=== PATIENT | male | born 1975 | race Caucasian/White ===

== ENCOUNTER 2018-06-30 01:56 | Observation (INO) | payer OTHER ==
[2018-06-30] MEDS ORDERED: ZOFRAN ONE (02:21)
[2018-06-30] MEDS ORDERED: ZOFRAN IV ONE (02:39)
[2018-06-30] MEDS ORDERED: ANTIVERT PO ONE (02:45)
[2018-06-30] MEDS ORDERED: CATAPRES PO ONE (02:45)
[2018-06-30] MEDS ORDERED: REGLAN IV PRN (02:46)
[2018-06-30 03:07] LABS: Basophils # (Auto) 0.1 K/mm3 (0.0-0.1); Basophils % (Auto) 0.7 % (0.0-1.8); Hematocrit 41.1 % (35.5-45.6); Hemoglobin 13.7 gm/dl (11.8-15.2); Lymphocytes # (Auto) 1.4 K/mm3 (1.2-5.4); Lymphocytes % (Auto) 10.7 % (13.4-35.0); Mean Corpuscular HGB Conc 34 % (32-34); Mean Corpuscular Hemoglobin 26 pg (28-32); Mean Corpuscular Volume 79 fl (84-94); Monocytes # (Auto) 0.8 K/mm3 (0.0-0.8); Monocytes % (Auto) 5.8 % (0.0-7.3); Platelet Count 195 K/mm3 (140-440); Red Blood Count 5.23 M/mm3 (3.65-5.03); Red Cell Distribution Width 16.6 % (13.2-15.2)
--- NOTE | 2018-06-30 03:09 | Emergency Department Report ---
HPI - General Chief Complaint: Nausea/Vomiting/Diarrhea Time Seen by Provider: 06/30/18 02:36 - HPI HPI: Room 19 The patient is a 43-year-old male presenting with chief complaint of vertigo. The patient states his symptoms began night before last approximately 23:00 when he became dizzy feeling as though the room was spinning. The patient states he closed his eyes and the symptoms resolved however they returned approximately one hour later. The patient began having nausea and vomiting yesterday evening the vomiting stopped (although the vertigo persisted). This evening the patient took a shower and the nausea vomiting returned prompting him to come to the ED. Patient waited a slight frontal headache but denies any preceding trauma. Patient denies any other forms of pain. Patient denies any preceding URI symptoms Location: [See above] Duration: [See above] Quality: Vertigo Severity: Moderate Modifying factors: [see above] Context: [see above] Mode of transportation: [not driving] ED Past Medical Hx - Past Medical History Hx Hypertension: Yes - Surgical History Past Surgical History?: No - Family History Family history: no significant - Social History Smoking Status: Never Smoker Substance Use Type: None (denies illicit drug use), Alcohol (occasional) - Medications Home Medications: Home Medications Medication Instructions Recorded Confirmed Last Taken Type amLODIPine 5 mg PO DAILY 06/30/18 06/30/18 Unknown History ED Review of Systems ROS: Stated complaint: ELEVATED BP Other details as noted in HPI Constitutional: denies: fever Eyes: denies: eye pain ENT: denies: congestion Respiratory: no symptoms reported. denies: cough Cardiovascular: denies: chest pain Endocrine: no symptoms reported Gastrointestinal: nausea, vomiting Genitourinary: denies: dysuria Musculoskeletal: denies: back pain Neurological: headache, vertigo Physical Exam - Physical Exam Vital Signs: Vital Signs 06/30/18 06/30/18 02:17 02:32 Temperature 98.3 F Pulse Rate 83 Respiratory 16 16 Rate Blood Pressure 161/107 O2 Sat by Pulse 100 100 Oximetry Physical Exam: GENERAL: The patient is well-developed well-nourished male lying on stretcher not appearing to be in acute distress. [] HEENT: Normocephalic. Atraumatic. Extraocular motions are intact. Patient has moist mucous membranes. No nystagmus noted NECK: Supple. No meningitic signs are noted. There is no adenopathy noted. CHEST/LUNGS: Clear to auscultation. There is no respiratory distress noted. HEART/CARDIOVASCULAR: Regular. There is no tachycardia. There is no gallop rub or murmur. ABDOMEN: Abdomen is soft, nontender. Patient has normal bowel sounds. There is no abdominal distention. SKIN: There is no rash. There is no edema. There is no diaphoresis. NEURO: The patient is awake, alert, and oriented. The patient is cooperative. The patient has no focal neurologic deficits. The patient has normal speech. Cranial nerves II through XII grossly intact, no drift. No dysmetria noted with [id number] bilaterally MUSCULOSKELETAL: There is no evidence of acute injury. ED Course Vital Signs 06/30/18 06/30/18 02:17 02:32 Temperature 98.3 F Pulse Rate 83 Respiratory 16 16 Rate Blood Pressure 161/107 O2 Sat by Pulse 100 100 Oximetry - Reevaluation(s) Reevaluation #1: 06/30/18 05:05 Patient states his symptoms remain unchanged despite meclizine and Ativan. Patient continues to feel nauseous. Will admit the patient to the hospital for further evaluation ED Medical Decision Making - Lab Data Result diagrams: 06/30/18 02:55 06/30/18 02:55 Laboratory Tests 06/30/18 06/30/18 02:55 02:55 WBC 13.4 H RBC 5.23 H Hgb 13.7 Hct 41.1 MCV 79 L MCH 26 L MCHC 34 RDW 16.6 H Plt Count 195 Lymph % (Auto) 10.7 L [place] % (Auto) 5.8 Eos % (Auto) 0.0 Baso % (Auto) 0.7 Lymph # 1.4 [place] # 0.8 Eos # 0.0 Baso # 0.1 Seg Neutrophils % 82.8 H Seg Neutrophils # 11.1 H Sodium 139 Potassium 4.2 Chloride 98.3 Carbon Dioxide 28 Anion Gap 17 BUN 17 Creatinine 1.2 Estimated GFR > 60 BUN/Creatinine Ratio 14 Glucose 110 H Calcium 10.0 - Radiology Data Radiology results: report reviewed (CT head), image reviewed (CT head) - Differential Diagnosis vertigo, ICH, cerebellar mass Critical care attestation.: If time is entered above; I have spent that time in minutes in the direct care of this critically ill patient, excluding procedure time. ED Disposition Clinical Impression: Vertigo Disposition: DC-09 OP ADMIT IP TO THIS HOSP Is pt being admited?: Yes Does the pt Need Aspirin: Yes Condition: Fair Referrals: PRIMARY CARE, [Primary Care Provider] - 3-5 Days Time of Disposition: 05:06 (hospitalist paged (Dr. Kelley Ochoa))
[2018-06-30 03:26] LABS: BUN/Creatinine Ratio 14; Blood Urea Nitrogen 17 mg/dL (9-20); Hemolysis Index 3
--- NOTE | 2018-06-30 03:44 | Cat Scan Report ---
FINAL REPORT EXAM: CT HEAD/BRAIN WO CON HISTORY: hypertension, vertigo TECHNIQUE: Routine axial imaging was obtained of the brain without IV contrast. FINDINGS: The ventricular system is appropriate in size and is symmetric. There is no evidence of acute stroke or hemorrhage. The mastoid air cells are well pneumatized. The visualized sinuses are clear. IMPRESSION: No acute intracranial process.
[2018-06-30] MEDS ORDERED: ATIVAN PO ONE (04:13)
[2018-06-30] MEDS ORDERED: ASPIRIN PO ONE (05:06)
[2018-06-30] MEDS ORDERED: TYLENOL PO PRN (06:13)
[2018-06-30] MEDS ORDERED: SODIUM CHLORIDE FLUSH SYRINGE 10 ML IV PRN (06:13)
[2018-06-30] MEDS ORDERED: ZOFRAN IV PRN (06:13)
--- NOTE | 2018-06-30 06:13 | History and Physical Report ---
History of Present Illness Date of examination: 06/30/18 History of present illness: 43-year-old man with history of hypertension comes emergency room with complaints of feeling dizzy since yesterday, associated with nausea, difficult to ambulate. No focal weakness on neurological symptoms Review of systems Constitutional: no weight loss, chills, fever Ears, eyes, nose, mouth and throat: no nasal congestion, no nasal discharge, no sinus pressure, no vision change, no red eye. Neck: No neck pain or rigidity. Cardiovascular: no chest pain, palpitations Respiratory: no cough, shortness of breath Gastrointestinal: no abdominal pain hematochezia Genitourinary : no frequency , no hematuria Musculoskeletal: no joint swelling or muscle ache Integumentary: no rash, no pruritis Neurological: no parathesias, no numbness, no focal weakness Endocrine: no cold or heat intolerance, no polyuria or polydipsia Hematologic/Lymphatic: no easy bruising, no easy bleeding, no gland swelling Allergic/Immunologic: no urticaria, no angioedema. PAST MEDICAL HISTORY: Hypertension PAST SURGICAL HISTORY: None SOCIAL HISTORY: No alcohol, no drugs, tobacco FAMILY HISTORY: Hypertension Medications and Allergies Allergies Allergy/AdvReac Type Severity Reaction Status Date / Time No Known Allergies Allergy Verified 06/30/18 03:44 Home Medications Medication Instructions Recorded Confirmed Last Taken Type amLODIPine 5 mg PO DAILY 06/30/18 06/30/18 Unknown History Active Meds: Active Medications Metoclopramide HCl (Reglan) 10 mg IV ONCE PRN PRN Reason: Nausea Last Admin: 06/30/18 04:25 Dose: 10 mg Exam - Physical Exam Narrative exam: Gen. appearance: Patient lying in bed, no apparent distress HEENT: Normocephalic, atraumatic, pupils equally round and reactive to light, extraocular movement intact, and no sclericterus,. No JVD or thyromegaly or nodule,neck supple, no carotid bruit ,mucous membranes moist, no exudate or erythema Heart: S1, S2, regular rate and rhythm Lungs: Clear bilaterally, breathing comfortable Abdomen: Positive bowel sounds, non-tender, nondistended, no organomegaly Extremity:no edema cyanosis, clubbing Skin: no rash, dry, warm Neuro: Oriented 3, cranial nerves II-12 intact, speech is fluent, motor and sensory intact - Constitutional Vitals: Temp Pulse Resp BP Pulse Ox 98.3 F 69 18 158/93 99 06/30/18 02:17 06/30/18 03:05 06/30/18 03:05 06/30/18 04:22 06/30/18 03:05 Results - Labs CBC & Chem 7: 06/30/18 02:55 06/30/18 02:55 Labs: Abnormal lab results 06/30/18 06/30/18 Range/Units 02:55 02:55 WBC 13.4 H (4.5-11.0) K/mm3 RBC 5.23 H (3.65-5.03) M/mm3 MCV 79 L (84-94) fl MCH 26 L (28-32) pg RDW 16.6 H (13.2-15.2) % Lymph % (Auto) 10.7 L (13.4-35.0) % Seg Neutrophils % 82.8 H (40.0-70.0) % Seg Neutrophils # 11.1 H (1.8-7.7) K/mm3 Glucose 110 H (75-100) mg/dL - Imaging and Cardiology CT Scan - head: report reviewed Assessment and Plan Assessment Vertigo Hypertension uncontrolled Obesity Plan Admit medicine Start meclizine, IV hydralazine Obtain MRI of the head DVT prophylaxis
[2018-06-30] MEDS ORDERED: APRESOLINE IV PRN (06:15)
[2018-06-30] MEDS: ANTIVERT PO SCH ×4 (07:05→22:47)
[2018-06-30] MEDS ORDERED: LOVENOX SUB-Q SCH (10:00)
--- NOTE | 2018-06-30 12:54 | Event Note ---
Date: 06/30/18 Patient was seen and evaluated this morning, CT head was negative, MRI is pending. Patient admitted this morning and continue management per H&P.
[2018-06-30] MEDS: LOVENOX SUB-Q SCH (13:33)
[2018-06-30] MEDS: NORVASC PO SCH (13:34)
[2018-06-30] MEDS: SODIUM CHLORIDE FLUSH SYRINGE 10 ML IV SCH ×2 (13:34→22:06)
--- NOTE | 2018-06-30 17:40 | Magnetic Resonance Report ---
FINAL REPORT EXAM: MR BRAIN WO CON HISTORY: dizzy TECHNIQUE: Multiplanar multisequence brain MR imaging without IV contrast. PRIORS: Head CT 06/30/2018 FINDINGS: The included air filled sinuses contain no acute fluid level. Mastoid air cells and middle ear cavities are clear. The brain is without mass, mass effect, hemorrhage, or acute infarct. There is no midline shift or brain edema. There are no areas of brain restricted diffusion to suggest an acute ischemic infarct. The ventricles and sulci are age-appropriate. IMPRESSION: No acute CVA or brain mass
[2018-07-01] MEDS: ANTIVERT PO SCH ×2 (05:33→12:01)
[2018-07-01 06:32] LABS: Basophils % (Auto) 0.4 % (0.0-1.8); Eosinophils # (Auto) 0.2 K/mm3 (0.0-0.4); Eosinophils % (Auto) 1.9 % (0.0-4.3); Hematocrit 41.3 % (35.5-45.6); Hemoglobin 13.5 gm/dl (11.8-15.2); Mean Corpuscular HGB Conc 33 % (32-34); Mean Corpuscular Hemoglobin 26 pg (28-32); Mean Corpuscular Volume 80 fl (84-94); Monocytes # (Auto) 0.6 K/mm3 (0.0-0.8); Platelet Count 172 K/mm3 (140-440); Red Blood Count 5.16 M/mm3 (3.65-5.03)
[2018-07-01 06:51] LABS: Calcium 9.3 mg/dL (8.4-10.2)
--- NOTE | 2018-07-01 08:45 | Discharge Summary ---
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 No focal weakness on neurological symptoms. Patient was admitted and CT, MRI head was done and no abnormal findings. Patient was treated symptomatically with meclizine and symptoms improved. Patient had hypertension and was given amlodipine. Patient is hemodynamically stable at the time of discharge. Patient was advised to have follow-up with his PCP. Disposition: DC- TO HOME OR SELFCARE Time spent for discharge: 31 minutes - Discharge Diagnoses (1) Vertigo Status: Acute Core Measure Documentation - Palliative Care Palliative Care/ Comfort Measures: Not Applicable - Core Measures Any of the following diagnoses?: none Exam - Physical Exam Narrative exam: Not in cardiopulmonary distress. The patient is morbidly obese. Vital signs as documented. Head exam is unremarkable. No scleral icterus . Neck is without jugular venous distension, thyromegaly, or carotid bruits. Lungs are clear to auscultation. Cardiac exam reveals regular rate and Rhythm. First and second heart sounds normal. No murmurs, rubs or gallops. Abdominal exam reveals normal bowel sounds, no masses, no organomegaly and no aortic enlargement. Extremities are nonedematous and both femoral and pedal pulses are normal. 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 No focal weakness. - Constitutional Vitals: Temp Pulse Resp BP Pulse Ox 98.2 F 74 20 144/106 97 07/01/18 05:36 07/01/18 05:46 07/01/18 05:36 07/01/18 05:46 07/01/18 05:36 Plan Activity: no restrictions Weight Bearing Status: Full Weight Bearing Diet: low fat, low salt Additional Instructions: Follow up at [facility] in 1- 2 weeks. Follow up with: PRIMARY CAREMD [Primary Care Provider] - 3-5 Days Prescriptions: amLODIPine 10 mg PO DAILY #30 Meclizine [Antivert] 25 mg PO Q6HR #30 tablet
[2018-07-01 11:58] VITALS: BP 144/105
[2018-07-01] MEDS: LOVENOX SUB-Q SCH (12:01)
[2018-07-01] MEDS: NORVASC PO SCH (12:01)
[2018-07-01] MEDS: SODIUM CHLORIDE FLUSH SYRINGE 10 ML IV SCH (12:02)
--- NOTE | 2018-07-08 15:45 | Query- Syncope ---
Peterson Pinto Date:___07/08/2018 Senior Biostatistician/Group Leader/CDS:__Alisson/Owen Phone#:___[phone] Exercise your independent professional judgment when responding to query. Questions asked do not imply a particular answer is desired or expected. We greatly appreciate your clarification on this issue. Clinical Documentation States: 43 Year old male was admitted on 06/30/2018 with complaints of feeling dizzy since yesterday, associated with nausea, difficult to ambulate. No focal weakness on neurological symptoms. Patient was treated symptomatically with meclizine and symptoms improved. The Discharge summary stated "- Discharge Diagnoses (1) Vertigo Status: Acute." Please specify the cause as: [ ] Autonomic Imbalance [ ] Dialysis disequilibrium syndrome [ ] Hypotension [ ] Shock [ ] Psychogenic [ ] Unable to Determine [ ] Other: Present on Admission: [ ] Yes (Y) [ ] Clinically undeterminable (W) [ ] No (N) Please also document response in your Progress Notes and/or Discharge Summary and indicate if the condition was present on admission. ANDREA
== END 2018-07-01 16:00 | disposition home or self-care (01) ==
LOC: ED 01:56 → INTOOBSV 06:13 → 3A 06:13
PROVIDERS: ADMIT Internal Medicine; ATTEND Internal Medicine
DX: R42 Dizziness and giddiness (principal); I10 Essential (primary) hypertension; E66.9 Obesity, unspecified; Z68.37 Body mass index [BMI] 37.0-37.9, adult
CPT/HCPCS: 36415; 70450; 70551; 80048; 85025; 94760; 96372; 96374; 96375; 99285; G0378; J0360; J1650; J2405; J2765